=== PATIENT | male | born 1965 | race Caucasian/White ===

== ENCOUNTER 2016-09-18 07:35 | Day surgery (SDC) | payer BC ==
[2016-09-13 15:17] VITALS: BMI 31.3
[~2016-09-18 07:35] MED LIST: LACTATED RINGERS 1,000 ML IV SCH; LIDOCAINE 1% 20 ML VIAL (10MG/ML) FOR IV START INTRADERMA PRN
[2016-09-18 07:50] VITALS: RESP 18; TEMP 97.5
[2016-09-18 08:09] LABS: Glucose,Whole Blood 142 mg/dL (75-99)
[2016-09-18] MEDS ORDERED: LIDOCAINE 1% 20 ML VIAL (10MG/ML) FOR IV START INTRADERMA ONE (08:09)
[2016-09-18] MEDS ORDERED: PROPOFOL 10 MG/ML 20 ML VIAL IV ONE (08:52)
--- NOTE | 2016-09-18 09:30 | P.PCN ---
Date of Procedure: 09/18/16 Procedure(s) Performed: Procedure: Total colonoscopy. Preoperative diagnosis: Screening for neoplasia. Postoperative diagnosis: Exam within normal limits. Preparation: HalfLytely prep. Sedation: Was provided by anesthesia. Brief clinical history: The patient is a 50-year-old male who is referred for this evaluation for screening for neoplasia age being his risk factor. He has no abdominal complaints, bleeding or anemia. There is no family history of colon cancer. This would be his first colonoscopy. Procedure: With the patient on his left lateral decubitus position and after informed consent and adequate sedation, the perianal area was inspected and it did not show any fissures or fistulas. There were no masses felt on digital rectal examination. The Olympus CFQ 160L video colonoscope was then inserted in the rectum in the usual fashion and advanced to the cecum. The preparation was good. The mucosa appeared healthy. No polyps or tumors were seen or any obvious diverticular disease or other pathology. I retroflexed endoscope in the rectum before the endoscope was withdrawn. The patient tolerated the procedure well. Plan: The patient was reassured. He will follow up with you as planned. I recommended repeat exam in 10 years.
[2016-09-18 09:51] VITALS: BP 116/77; PULSE 79
== END 2016-09-18 10:12 | disposition home or self-care (01) ==
LOC: ORWHC2ENDO 07:35
DX: Z12.11 Encounter for screening for malignant neoplasm of colon (principal); I10 Essential (primary) hypertension; E78.5 Hyperlipidemia, unspecified; E11.9 Type 2 diabetes mellitus without complications; Z79.84 Long term (current) use of oral hypoglycemic drugs; Z79.899 Other long term (current) drug therapy
CPT/HCPCS: J2704; G0121

== ENCOUNTER → 2022-05-18 | Outpatient (CLI) | payer BC ==
--- NOTE | 2022-05-18 19:44 | MR ---
EXAMINATION TYPE: MR brain wo con DATE OF EXAM: 05/18/2022 COMPARISON: CT brain September 22, 2011 HISTORY: Head injury, headaches. TECHNIQUE: Multiplanar, multisequence imaging of the brain and brainstem is performed without IV cont rast. FINDINGS: Diffusion weighted images demonstrate no evidence of a recent infarct or other diffusion abnormality. There is mild ventricular and sulcal prominence. Occasional tiny focus of T2 hyperintensity seen thro ughout the white matter bilaterally. Less than 5 scattered lesions are seen. Lesions are nonspecific in appearance and distribution. T2 Star weighted images show no suspicious intraparenchymal blood pro duct. Midline structures demonstrate normal morphology. The craniocervical junction appears within normal limits. Normal vascular flow voids are present. Mucosal thickening and fluid in the right sphenoid si nus. Globes are intact bilaterally. IMPRESSION: Mild diffuse age-related cerebral atrophy and minimal nonspecific white matter changes. N o abnormal intraparenchymal blood product to suggest JUAN.
== END | disposition home or self-care (01) ==
LOC: RADMRIMAIN 16:22
PROVIDERS: ATTEND Physician Assistant Medical
DX: S06.0X0D Concussion without loss of consciousness, subsequent encounter (principal); G31.1 Senile degeneration of brain, not elsewhere classified; R90.82 White matter disease, unspecified; R51.9 Headache, unspecified; H53.9 Unspecified visual disturbance; I10 Essential (primary) hypertension
CPT/HCPCS: 70551

== ENCOUNTER → 2022-11-29 | Outpatient (CLI) | payer BC ==
[2022-11-29 19:58] LABS: African American GFR (CKD) 115.2 (60.0-200.0); Albumin 4.6 g/dL (3.8-4.9); Albumin/Globulin Ratio 3.49 (1.60-3.17); Anion Gap 10.1 mmol/L (10.00-18.00); BUN/Creat Ratio 17.43 Ratio (12.00-20.00); Blood Urea Nitrogen 14.1 mg/dL (9.0-27.0); Calcium 9.1 mg/dL (8.7-10.3); Carbon Dioxide 25.4 mmol/L (20.0-27.5); Globulin 1.3 g/dL (1.6-3.3); Non-African American GFR(CKD) 99.4 (60.0-200.0); Potassium 4.3 mmol/L (3.5-5.5); Total Bilirubin 0.5 mg/dL (0.30-1.20)
[2022-11-30 01:19] LABS: C-Peptide 4.65 ng/mL (0.81-3.85)
== END | disposition home or self-care (01) ==
LOC: LABWHC1 14:12
PROVIDERS: ATTEND Internal Medicine Endocrinology, Diabetes & Metabolism
DX: E11.65 Type 2 diabetes mellitus with hyperglycemia (principal)
CPT/HCPCS: 36415; 80053; 83519; 84681